=== PATIENT | female | born 1975 | race Caucasian/White ===

== ENCOUNTER 2018-08-24 09:00 | Outpatient (RCR) | payer OTHER, SELFPAY ==
--- NOTE | 2018-12-14 11:28 | HP.PT.NRP ---
HP - Discharge Summary (1) - Patient Information CHRISTOPHE PIKE was seen in my office for initial evaluation on . The following Plan of Care was established for this patient: This patient was last seen in our office 08/24/18. Pertinent comments regarding their Physical therapy will appear below: Pt. came for her initial evaluation with diagnosis of breast cancer. Pt. is eager to do exercises on her own. After talking with her she decided to do her exercises on her own and come back to PT if needed. Pt. has not been seen since and will be DC from PT at this point in time. At this point I will be discontinuing this patient from physical therapy. I would be happy to see this patient again in the future if found appropriate by the physician. Thank you! IRA TseT
== END 2018-08-24 19:00 | disposition home or self-care (01) ==
LOC: PT 09:00
PROVIDERS: Family Provider Family Medicine; PCP Family Medicine
DX: C50.812 Malignant neoplasm of overlapping sites of left female breast (principal); Z17.0 Estrogen receptor positive status [ER+]; E66.9 Obesity, unspecified

== ENCOUNTER → 2018-09-15 12:40 | Outpatient (CLI) | payer OTHER, SELFPAY | PROVIDERS: Family Provider Family Medicine; PCP Family Medicine; Referring Provider Family Medicine; Visit Provider Family Medicine | DX: Z45.2 Encounter for adjustment and management of vascular access device (principal); Z85.3 Personal history of malignant neoplasm of breast | CPT/HCPCS: 96523; A4216 ==

== ENCOUNTER → 2019-08-14 09:34 | Outpatient (CLI) | payer OTHER, SELFPAY ==
[2019-02-20 08:32] VITALS: BMI 27.9
--- NOTE | 2019-08-14 09:37 | ECHOD_ITS ---
Reason For Study: CHF Procedure This was a 2D Doppler, Color Flow transthoracic echocardiogram. Myocardial strain analysis was performed in this exam to aid in the assessment of cardiac function. Exam performed in department. Left Ventricle Normal LV size. Left ventricular systolic function is lower limits of normal. The estimated ejection fraction is 50 %. The global longitudinal strain = -12% (abnormal). No evidence for diastolic dysfunction. No regional wall motion abnormalities noted. Right Ventricle Normal RV size. Normal systolic function. Atria Normal left atrium. Normal right atrium. No doppler evidence for ASD. Mitral Valve There is no mitral annular calcification. Normal mitral valve. Trivial mitral valve insufficiency. Tricuspid Valve Normal tricuspid valve. Trivial tricuspid valve insufficiency. Aortic Valve Trisinus/trileaflet aortic valve. Normal aortic valve. Pulmonic Valve The pulmonic valve is not well visualized. Great Vessels The aortic root is not well visualized. Pericardium/Pleural No pericardial effusion. MMode/2D Measurements & Calculations LVIDd: 5.2 cm IVSd: 0.99 cm LA dimension: 3.2 cm LVIDs: 3.6 cm LVPWd: 0.82 cm RVDd: 2.7 cm FS: 29.8 % LAV(MOD-bp): 25.6 ml LVAd ap4: 29.4 cm2 SV(MOD-sp4): 41.9 ml LAV(MOD-bp) Indexed: 15.8 ml/m2 EDV(MOD-sp4): 96.3 ml LAV(MOD-sp2): 28.6 ml EDV(sp4-el): 97.5 ml LAV(MOD-sp4): 22.1 ml LVAs ap4: 20.3 cm2 ESV(MOD-sp4): 54.4 ml ESV(sp4-el): 53.7 ml EF(MOD-sp4): 43.5 % EF(sp4-el): 44.9 % SV(sp4-el): 43.7 ml LA A4 area: 11.5 cm2 RA A4 area: 10.2 cm2 Time Measurements MV dec time: 0.15 sec Doppler Measurements & Calculations MV E max clemente: 104.6 cm/sec Lat Peak E' Clemente: 10.0 cm/sec Med Peak E' Clemente: 8.7 cm/sec MV A max clemente: 78.7 cm/sec E/E' lat: 10.5 E/E' med: 12.0 MV E/A: 1.3 MV V2 max: 119.3 cm/sec MV P1/2t max clemente: 119.3 cm/sec Ao V2 max: 131.8 cm/sec MV max P.7 mmHg MV P1/2t: 55.3 msec Ao max P.0 mmHg MV V2 mean: 69.5 cm/sec MV mean P.3 mmHg MV dec slope: 632.1 cm/sec2 MV V2 VTI: 24.6 cm MVA(P1/2t): 4.0 cm2 LV V1 max: 99.2 cm/sec PA V2 max: 86.7 cm/sec LV V1 max P.9 mmHg Interpretation Summary Left ventricular systolic function is lower limits of normal. The estimated ejection fraction is 50 %. The global longitudinal strain = -12% (abnormal). Trivial mitral valve insufficiency. Trivial tricuspid valve insufficiency. No evidence for diastolic dysfunction. Ordering Physician: Choco Peacock Referring Physician: Calos Quevedo Performed By: Patrice Romero RCS
== END ==
PROVIDERS: Family Provider Family Medicine; PCP Family Medicine; Referring Provider Nurse Practitioner Family; Visit Provider Nurse Practitioner Family
DX: I50.9 Heart failure, unspecified (principal); I43 Cardiomyopathy in diseases classified elsewhere
CPT/HCPCS: 93306

== ENCOUNTER → 2020-07-29 14:45 | Outpatient (CLI) | payer OTHER, SELFPAY ==
[2020-03-25 08:24] VITALS: BMI 26.2
[2020-07-29 16:57] LABS: Absolute Lymphocyte Count 2.94 X10^3/uL (0.83-4.51); Absolute Neutrophil Count 4.7 X10^3/uL (2.0-7.7); Basophil# 0.06 X10^3/uL; Basophil% 0.7 % (0-1); Eosinophil# 0.18 X10^3/uL; Eosinophils% 2.1 % (0-5); Hematocrit 43.8 % (37-47); Hemoglobin 14.2 g/dL (12.0-15.0); Lymphocyte # 2.94 X10^3/ul (4.0); Lymphocyte % 34.8 % (19-41); Mean Corp Hgb Conc 32.4 g/dL (32-36); Mean Corpuscular Hgb 32.6 pg (27.0-32.0); Mean Corpuscular Volume 100.5 fL (81-99); Mean Platelet Vol. 9.4 fl (6.2-12.0); Monocyte% 5.9 % (0-10); NRBC Flagged by Analyzer 0 % (0-5); Neutrophil # 4.73 X10^3/uL (2.7-7.7); Neutrophil % 56.1 % (47-70); Platelet Count 353 K/mm3 (150-450); RBC Distribution Width CV 13.2 % (11.6-14.6); RBC Distribution Width SD 49.2 fl (35.1-43.9); Red Blood Count 4.36 M/mm3 (4.2-5.4); White Blood Count 8.4 K/mm3 (4.4-11.0)
[2020-07-29 17:13] LABS: ALB/GLOB Ratio 1.2 RATIO (0.9-2.4); AST(SGOT) 29 U/L (15-37); Alanine Aminotransfer ALT/SGPT 34 U/L (13-56); Albumin, Serum 4.1 g/dL (3.2-5.0); Alkaline Phosphatase 66 U/L (45-117); Anion Gap 5 (5-15); BUN 10 mg/dL (7-18); BUN/Creat Ratio 13.8 RATIO (10-20); Calcium,Total 8.7 mg/dL (8.5-10.1); Chloride 107 mmol/L (98-107); Creatinine, Serum 0.72 mg/dL (0.55-1.02); EST Glomerular Filtration Rate 92 mL/min (>60); Est Glom Filt Rate - Afr Amer 111 mL/min (>60); Globulin 3.3 g/dL (2.2-4.2); Glucose 77 mg/dL (74-106); Potassium 4.1 mmol/L (3.5-5.1); Protein, Total 7.4 g/dL (6.4-8.2); Sodium Level 140 mmol/L (136-145)
== END ==
PROVIDERS: PCP Family Medicine; Visit Provider Family Medicine
DX: R10.11 Right upper quadrant pain (principal)
CPT/HCPCS: 36415; 80053; 85025

== ENCOUNTER → 2020-08-02 08:43 | Outpatient (CLI) | payer OTHER, SELFPAY ==
[2020-03-25 08:24] VITALS: BMI 26.2
--- NOTE | 2020-08-02 08:48 | US_ITS ---
STUDY: ABDOMINAL ULTRASOUND - RIGHT UPPER QUADRANT REASON FOR VISIT: Female, 44 years old RUQ PAIN TECHNIQUE: Ultrasound evaluation of the right upper quadrant was performed with real-time and static nguyen-scale imaging. TECHNICAL QUALITY: Adequate. COMPARISON: 09/09/2015 FINDINGS: Liver: The liver measures 11.9 cm. There is normal echogenicity of the liver. The bile ducts are within normal limits. There is hepatic color flow. The direction of portal flow is hepatopetal. There is no demonstrated mass lesion. Gallbladder: Normal distended gallbladder. The gallbladder wall measures 2 mm. There is a negative sonographic Carrington''s sign. There is no pericholecystic fluid. There are no gallstones. Common Bile Duct (C.B.D.): The common bile duct measures 2 mm. Pancreas: Normal size of the head, body and tail of the pancreas. There is normal echogenicity of the pancreas. There is no demonstrated pancreatic mass or cyst. Right Kidney: Normal size of the right kidney. The right kidney measures 9.5 cm. Normal renal cortex. The right cortex measures 1.4 cm. There is no demonstrated renal mass or cyst. There is no right hydronephrosis. US/Abdomen Limited IMPRESSION: Normal right upper quadrant ultrasound examination. Electronically Signed: Yogesh Gonzalez MD at 12:55 EDT Tel , Service support ,
== END ==
PROVIDERS: PCP Family Medicine; Referring Provider Family Medicine; Visit Provider Family Medicine
DX: R10.11 Right upper quadrant pain (principal)
CPT/HCPCS: 76705

== ENCOUNTER 2021-11-05 13:17 | Outpatient (CLI) | payer OTHER, SELFPAY ==
--- NOTE | 2021-11-05 13:20 | RAD_ITS ---
STUDY: X-RAY - LUMBAR SPINE REASON FOR EXAM: Female, 45 years old. Back pain, history of breast CVA TECHNIQUE: 4 view(s) of the lumbar spine were obtained. COMPARISON: None FINDINGS: Normal lumbar lordosis. There is a rotatory scoliosis. There is a normal alignment of the vertebrae. Normal vertebral bodies and endplates. Normal disc space heights. The soft tissue structures are unremarkable. RAD/L/S Spine Min 4 Views IMPRESSION: Rotatory scoliosis, no demonstrated fracture or suspicious osseous lesion Electronically Signed: Yury Ramirez MD at 14:21 EST ,
== END 2021-11-05 23:59 | disposition short-term general hospital (02) ==
LOC: MTRAD 13:18
PROVIDERS: PCP Family Medicine; Referring Provider Family Medicine; Visit Provider Family Medicine
DX: M54.17 Radiculopathy, lumbosacral region (principal); Z85.3 Personal history of malignant neoplasm of breast
CPT/HCPCS: 72110

== ENCOUNTER 2021-12-30 09:00 | Outpatient (RCR) | payer OTHER, SELFPAY ==
--- NOTE | 2021-12-07 12:23 | HP.PTEVAL_ITS ---
Patient's Visit Information CHRISTOPHE PIKE is a 46 year old F referred to Physical Therapy by Dr. Calos Quevedo DO with a diagnosis of LUMBAR RADICULOPATHY.. Date of Evaluation: 12/07/21 Physical Therapist: Radha Dyer PT, Cert MDT - Visit Plan Frequency: 2-3x /Week Duration: 2-4 Weeks Plan: EVAL ONLY. CHECK AUTH AND RECORD VISITS AND EXPIRATION DATE APPROPRIATE. MODALITIES NEEDED/APPROVED. POSTURE CORRECTION/STRENGTHENING, INSTRUCTION IN APPROPRIATE BODY MECHANICS AND ACTIVITY MODIFICATIONS. DLS STARTING WITH A NEUTRAL SPINE PROGRESSING ROM TOLERATED. RENETTA LE ROM, STRETCHING AND STRENGTHENING. HEP INSTRUCTION. 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 Disability: NO. Present symptoms: LEFT LOW BACK, BUTTOCK, THIGH AND KNEE PAIN. NO PAIN BELOW THE KNEE. NO NUMBNESS OR TINGLING. ALSO GETS PAIN IN RIGHT LOW BACK/BUTTOCKS BUT IT DOES NOT GO DOWN THE RIGHT LEG. Present since: ABOUT 4 WKS AGO. Pain Scale: WORST 5/10, LEAST 0/10. Currently: 0/10. Commenced as a result of: 3 DAYS OF SPRING CLEANING FROM CEILING TO FLOOR 8 HOURS A DAY. Symptoms at onset: LEFT BUTTOCK PAIN. Worse: NO APPARENT REASON. Better: LYING DOWN AND ICE. Disturbed sleep: YES. Previous history/Previous treatment: NO PRIOR HX OF BACK PROBLEMS. Treatment this episode: 7 VISITS WITH [facility] WITH SOME BENEFIT. SELF REFERRED TO [facility]. NO PRIOR HX WITH [facility]. MUSCLE RELAXERS, STEROIDS AND PAIN MEDICINE - PATIENT REPORTS THE MEDICINE DIDN'T HELP BUT SHE JUST KEPT TAKING IT BECAUSE SHE DIDN'T KNOW WHAT ELSE TO DO. SHE REPORTS THE PAIN WAS SO BAD THAT SHE WANTED TO CUT HER LEG OFF BUT SHE IS SO MUCH BETTER NOW. SHE RELATES HER IMPROVEMENT TO THE STRETCHES SHE TRIED THAT SHE FOUND ON LINE. ALSO WENT TO [facility] FOR TESTING INCLUDING SPINE CAT SCAN AND OTHER CANCER SCREENINGS SINCE ONSET OF THIS PAIN. SHE REPORTS THAT THEY FOUND A WEDGE AT T12, ARTHRITIS AND SCOLIOSIS. NO FOLLOW UP TESTING RECOMMENDED AT THIS TIME BUT PLANS TO FOLLOW UP WITH [facility] END OF DECEMBER 2021. Coughing/sneezing/straining: NEGATIVE. Gait: GAIT IS NORMAL NOW. Difficulty initiating urination: NO. DENIES BOWEL AND BLADDER DYSFUNCTION. Accidents: NO. Unexplained weight loss: NO. Imaging: STUDY: X-RAY - LUMBAR SPINE. REASON FOR EXAM: Female, 45 years old. Back pain, history of breast CVA. TECHNIQUE: 4 view(s) of the lumbar spine were obtained. COMPARISON: None. . FINDINGS: Normal lumbar lordosis. There is a rotatory scoliosis. There is a normal. alignment of the vertebrae. Normal vertebral bodies and endplates. Normal disc space heights. The soft tissue structures are unremarkable. . RAD/L/S Spine Min 4 Views. IMPRESSION: Rotatory scoliosis, no demonstrated fracture or suspicious osseous lesion. . Electronically Signed: Yury Ramirez MD. at 14:21 EST. Reading Location ID and State: [facility] / [place]. PMH: HTN. 2018 [facility] AND CAN[facility]ER FREE NOW. TREATED WITH CHEMO, RADIATION, RENETTA MASTECTOMY AND HYSTERECTOMY. - Objective Sitting/Standing Posture: POOR. SCOLIOSIS. Active Correction of posture: NE. Other Observations: INDEP GAIT AND TRANSFERS. Motor deficit: RENETTA LE'S GROSSLY 5/5 WITH MMT'ING EXCEPT HIPS 4/5. Sensory deficit: RENETTA LE LIGHT TOUCH SENSATION GROSSLY INTACT AND SYMMETRICAL. ROM deficit: RENETTA LE'S WFL. Reflexes: UNABLE TO ELICIT RENETTA LE DTR'S. Dural Signs: NEGATIVE RENETTA LE'S. Lumbar mvmt loss: flex - NIL. ext - MIN. R SG - MIIN. L SG - MIN. Core strength: POOR. Palpation: MILD TENDERNESS L ISCHEAL TUBEROSISTY. TREATMENT: NEUROMUSCULAR REEDUCATION - RETRAINING OF MVMT AND POSTURE FOR SITTING, LYING AND STANDING ACTIVITIES. - Balance/Special Test Scores Oswestry Low Back Score: 22 - Goals Goal 1:: DECREASE C/O LOW BACK AND L LE SX'S. Goal Time Frame: 4-6 Weeks Goal 2:: IMPROVE LIFTING, WALKING, STANDING, SLEEP, AND WORK/HOMEMAKING FUNCTION Goal Time Frame: 4-6 Weeks Goal 3:: INSTRUCT IN PROPHYLAXIS Goal Time Frame: 4-6 Weeks - Anticipated Interventions Patient/Client Instruction: Educate patient on: Condition, Plan of Care, Risk Factors For the Purpose of:: To improve self management Therapeutic Exercise to Include: Strength training TENS: Yes IF ES: Yes Cryotherapy (ice pack, ice massage): Yes Thermo therapy (hot pack): Yes Ultrasound (thermal/non thermal): Yes For the Purpose of:: To decrease pain, To improve nutrient delivery to tissue Thank you for the opportunity to evaluate your patient. For Medicare and Medicare HMO plans, please review the plan of care and approve it. It will need to be FAXED BACK to us at [phone] for Medicare purposes. For Medicare only, by signing this I certify the plan of care. Please let me know if there are questions or concerns regarding this plan of care. Physician Signature: Date:
--- NOTE | 2021-12-30 09:27 | HP.PTDCSUM ---
It has been my pleasure to treat CHRISTOPHE PIKE referred by Dr. Calos Quevedo DO, with the diagnosis of LUMBAR RADICULOPATHY. for a total of 6 visit(s). Discharge Date: 12/30/21 Please see the following information for a summary of their discharge status. Subjective: PATIENT REPROTS SHE IS DOING GOOD. STATES SHE PICKED UP STICKS ON TUESDAY, WAS CAREFUL NOT TO BEND OR TWIST TOO MUCH, AND DID OK. PATIENT REPORTS SHE LOVES THE EX'S AND SHE FEELS LIKE LONG SHE KEEPS DOING THEM SHE WILL BE OK. WOULD LIKE TO BE DISCHARGE TO HEP. PATIENT REPORTS SHE HAS NEVER HAS DONE THESE EX'S BEFORE AND SHE TRUELY BELIEVES THEY ARE WORKING. L LBP Pain Intensity (Out of 10): 0 L LE Pain Intensity (Out of 10): 0 R LB/BUTTOCK Pain Intensity (Out of 10): 4 % Improvement: 90 Objective/Function: WRITTEN HEP PROVIDED. PATIENT IS INDEP WITH HEP. ALL GOALS MET AND APPROPRIATE FOR DISCHARGE. AGREEABLE TO DISCHARGE. PATIENT TOLERATED ALL INTERVENTIONS WELL TODAY AND IS PLEASANT AND COOPERATIVE TO WORK WITH. Goal 1:: DECREASE C/O LOW BACK AND L LE SX'S. Goal Progress: Goal Met Goal 2:: IMPROVE LIFTING, WALKING, STANDING, SLEEP, AND WORK/HOMEMAKING FUNCTION Goal Progress: Goal Met Goal 3:: INSTRUCT IN PROPHYLAXIS Goal Progress: Goal Met Plan: D/C If there are questions or concerns regarding this patient's physical therapy, please feel free to call me at [phone]. Thank you for the referral of this patient. Sincerely, Radha Dyer, PT, Cert MDT Balance/Gait/Functional tests - Balance/Special Test Scores Oswestry Low Back Score: 0
== END 2021-12-30 10:43 | disposition home or self-care (01) ==
LOC: PT 09:00
PROVIDERS: PCP Family Medicine; Referring Provider Family Medicine; Visit Provider Family Medicine
DX: M54.16 Radiculopathy, lumbar region (principal)
CPT/HCPCS: 97110; 97112; 97162; 97530

== ENCOUNTER → 2024-01-27 | Outpatient (CLI) | payer OTHER, SELFPAY ==
[2024-01-27 15:28] LABS: Absolute Lymphocyte Count 1.27 X10^3/uL (0.83-4.51); Absolute Neutrophil Count 6.5 X10^3/uL (2.0-7.7); Basophil# 0.04 X10^3/uL; Basophil% 0.5 % (0-1); Eosinophil# 0.08 X10^3/uL; Hematocrit 43.6 % (37-47); Hemoglobin 13.7 g/dL (12.0-15.0); Lymphocyte # 1.27 X10^3/ul (0.83-4.51); Lymphocyte % 15.2 % (19-41); Mean Corp Hgb Conc 31.4 g/dL (32-36); Mean Corpuscular Hgb 30.4 pg (27.0-32.0); Mean Corpuscular Volume 96.7 fL (81-99); Mean Platelet Vol. 9.6 fl (6.2-12.0); Monocyte# 0.39 X10^3/uL; Monocyte% 4.7 % (0-10); NRBC Flagged by Analyzer 0 % (0-5); Neutrophil # 6.54 X10^3/uL (2.7-7.7); Neutrophil % 78.2 % (47-70); Platelet Count 266 K/mm3 (150-450); RBC Distribution Width CV 13.7 % (11.6-14.6); RBC Distribution Width SD 49.3 fl (35.1-43.9); Red Blood Count 4.51 M/mm3 (4.2-5.4); White Blood Count 8.4 K/mm3 (4.4-11.0)
[2024-01-27 15:56] LABS: Vitamin D,25 Hydroxy 50.4 ng/mL
[2024-01-29 08:08] LABS: Immunoglobulin M 53 mg/dL (26-217)
[2024-02-04 15:08] LABS: Immunoglobulin A 94 mg/dL (87-352); Immunoglobulin E 83 IU/mL (6-495); Immunoglobulin G 819 mg/dL (586-1602)
== END | disposition home or self-care (01) ==
LOC: BFHLAB 13:25
PROVIDERS: PCP Family Medicine; Visit Provider Family Medicine
DX: R68.89 Other general symptoms and signs (principal); E55.9 Vitamin D deficiency, unspecified; J06.9 Acute upper respiratory infection, unspecified
CPT/HCPCS: 36415; 82306; 82784; 82785; 85025

== ENCOUNTER → 2024-01-27 | Outpatient (CLI) | payer OTHER, SELFPAY | END | disposition home or self-care (01) | LOC: LAB.FUTURE 13:05 | PROVIDERS: PCP Family Medicine; Visit Provider Family Medicine | DX: R68.89 Other general symptoms and signs (principal); E55.9 Vitamin D deficiency, unspecified; J06.9 Acute upper respiratory infection, unspecified ==

== ENCOUNTER → 2024-03-12 | Outpatient (CLI) | payer OTHER, SELFPAY | END | disposition home or self-care (01) | LOC: LABSPEC 15:25 | PROVIDERS: PCP Family Medicine; Referring Provider Otolaryngology Otolaryngology/Facial Plastic Surgery; Visit Provider Otolaryngology Otolaryngology/Facial Plastic Surgery | DX: J32.9 Chronic sinusitis, unspecified (principal) | CPT/HCPCS: 87070; 87077; 87205 ==

== ENCOUNTER → 2024-06-14 | Outpatient (CLI) | payer OTHER, SELFPAY ==
--- NOTE | 2024-06-14 12:24 | RAD_ITS ---
STUDY: X-RAY - LUMBAR SPINE REASON FOR EXAM: Female, 48 years old. Pain. TECHNIQUE: 4 view(s) of the lumbar spine were obtained. COMPARISON: November 05 FINDINGS: Osteopenia. Normal lordosis. Stable mild thoracolumbar scoliosis. Normal vertebral alignment. Diffuse mild lower thoracic and lumbosacral facet sclerosis. Mild intervertebral disc space narrowing most marked at T10-11, T12-L1, L1-L2 and L5-S1. Postsurgical changes in the lower abdomen and pelvis. RAD/L/S Spine Min 4 Views IMPRESSION: Stable osteopenia with mild scoliosis and lower thoracic and lumbosacral spondylosis. Electronically Signed: Stanley Murray MD at 13:38 EDT ,
--- NOTE | 2024-06-14 12:24 | RAD_ITS ---
STUDY: X-RAY - PELVIS AND RIGHT HIP REASON FOR EXAM: Female, 48 years old. Pain. TECHNIQUE: 3 views of the pelvis and hip. COMPARISON: None. FINDINGS: There is a normal bowel gas pattern with air seen to the rectum. Clips in the lower abdomen and pelvis Normal bilateral iliac wings, sacroiliac joints and visualized sacrum. Normal bilateral superior and inferior pubic rami. Normal pubic symphysis. Normal bilateral ischial tuberosities. Normal visualized femoral head. Normal acetabulum. Normal hip joint. RAD/HIP, UNI W/ Pelvis 2-3 Views IMPRESSION: No significant abnormality identified. Electronically Signed: Stanley Murray MD at 13:41 EDT ,
== END | disposition home or self-care (01) ==
PROVIDERS: PCP Family Medicine; Referring Provider Physician Assistant; Visit Provider Physician Assistant
DX: C50.812 Malignant neoplasm of overlapping sites of left female breast (principal); Z17.0 Estrogen receptor positive status [ER+]; M81.0 Age-related osteoporosis without current pathological fracture; Z15.01 Genetic susceptibility to malignant neoplasm of breast; Z15.09 Genetic susceptibility to other malignant neoplasm; Z79.811 Long term (current) use of aromatase inhibitors; M54.50 Low back pain, unspecified
CPT/HCPCS: 72110; 73502

== ENCOUNTER 2024-09-24 09:00 | Outpatient (RCR) | payer OTHER, SELFPAY ==
--- NOTE | 2024-07-04 07:56 | HP.PTEVAL_ITS ---
Patient's Visit Information Visit Information Visit Information: CHRISTOPHE PIKE is a 48 year old F referred to Physical Therapy by KRYS CUNNINGHAM with a diagnosis of R hip OA/R lumbar radic. Date of Evaluation: 07/04/24 Physical Therapist: ESTRADA Mariano Visit Plan Frequency: 2x /Week Duration: 2 Months Plan: 2X/ week for 4 weeks for centralization of sx using extension principle, core and postural exercises, R hip strength (leena hip ext) with HEP HEP: prone press ups 2 X 10 and then 1X 10 with pt sag and sit with L roll and change bucket seats in car with cushion etc. Subjective Subjective: She went to the Dr and got an x-ray and MRI or R hip and back. She has a muscle detachment When she runs she feels that her R leg bone will fall out of socket. She can walk but she can not run and has to run a lot catching her grandkids. The pain goes all the way down to the foot on the R side. On the MRI she has spinal cord narrowing and that is what was causing the R leg pain. She has to put something under her R hip to drive. She is not sleeping well because she has pain. She sees the spine Dr on August 16. The hip Dr says no surgery but not sure about the back Dr. She was a previous [place] pt with osteoporosis but they said it was not bone. She has Gabapetin for the nerve pain and meloxicam for the pain. She takes the Gabapetin 3X/ day and has not noticed a difference. Laying on her hip hurts. She has to get up slower from low chairs and moves slower. Pain R hip pain: Pain Intensity (Out of 10): 4 Back pain: Pain Intensity (Out of 10): 6 R ankle pain: Pain Intensity (Out of 10): 0 Pain Intensity Range: 8 Comment: After an hour of driving Objective Objective: Gait: Walks with decrease stance time on the R Posture: Sits with decreased PPT. Does sit well with L roll with more upright posture. Patella DTR's 0/3 LE MMT: R hip flex 4-/5 and L 4/5 R knee ext B 4/5 R knee flex B 4/5 R hip abd 4-/5 and L 4/5 R hip ext B 4-/5 Pt is able to walk on heels and toes Pt has decreased ER of the R hip compared to the L with increase pain at end range. She has excellent Hamstring muscle length with some slight pain at end range stretching on the R. She has good hip flexor muscle length Trunk AROM: flex 75%, Ext 50% (increase pain) Prone lying had some central back pain, 2 X 10 press ups (less central back pain) and then 1 X 10 with pt sag and had improved extension ROM with some back pain. Instructed pt in good posture sitting in the car with a L roll Balance/Special Test Scores Oswestry Low Back Score: 20 Goals Goal 1:: I HEP Goal Time Frame: 6-8 Weeks Goal 2:: Be able to get up from sitting on pedicure chair at work without having to go slow and have pain Goal Time Frame: 6-8 Weeks Goal 3:: Decrease R hip and back pain freq by 50% Goal Time Frame: 6-8 Weeks Rehabilitation Potential Rehabilitation Potential: Good Anticipated Interventions Patient/Client Instruction: Educate patient on: Condition and Plan of Care For the Purpose of:: To decrease pain, To increase ROM, To improve nutrient delivery to tissue, To improve muscle performance and motor function, To improve ability to perform ADL's, To increase tolerance to activity/condition/position, To improve performance and independence with ADL's, To decrease level of supervision to perform tasks, To improve ability of physical actions for home/community/work/leisure, To improve gait and locomotor functions, To improve health of tissue, To decrease soft tissue restriction and To increase fl exibility/ROM Therapeutic Exercise to Include: Strength training, Body mechanics, Postural training, Flexibilty training, Neuromotor development, Active ROM, Dynamic Lumbar Stabilization, Angie Exercises and Scapular Strength/Stabilization For the Purpose of:: To decrease pain, To increase ROM, To improve nutrient delivery to tissue, To improve muscle performance and motor function, To improve ability to perform ADL's, To increase tolerance to activity/condition/position, To improve performance and independence with ADL's, To decrease level of supervision to perform tasks, To improve ability of physical actions for home/community/work/leisure, To improve gait and locomotor functions, To improve health of tissue, To decrease soft tissue restriction and To increase flexibility/ROM Manual Therapy Techniques to Include: Mobilization, Passive ROM and Soft tissue mobilization For the Purpose of:: To decrease pain, To increase ROM, To improve nutrient delivery to tissue, To improve muscle performance and motor function, To improve ability to perform ADL's, To increase tolerance to activity/condition/position, To improve performance and independence with ADL's, To improve ability of physical actions for home/community/work/leisure, To improve gait and locomotor functions and To improve health of tissue Cryotherapy (ice pack, ice massage): Yes Thermo therapy (hot pack): Yes For the Purpose of:: To increase ROM and To improve nutrient delivery to tissue Text: Thank you for the opportunity to evaluate your patient. For Medicare and Medicare HMO plans, please review the plan of care and approve it. It will need to be FAXED BACK to us at [phone] for Medicare purposes. For Medicare only, by signing this I certify the plan of care. Please let me know if there are questions or concerns regarding this plan of care. Physician Signature: Date:
--- NOTE | 2024-11-12 07:24 | HP.PT.NRP ---
Patient Information Patient Information: CHRISTOPHE PIKE was seen in my office for initial evaluation on 07/04/24. The following Plan of Care was established for this patient: POC Established Initial Frequency: 2x /Week Initial Duration: 2 Months Anticipated Interventions Patient/Client Instruction: Educate patient on: Condition and Plan of Care For the Purpose of:: To decrease pain, To increase ROM, To improve nutrient delivery to tissue, To improve muscle performance and motor function, To improve ability to perform ADL's, To increase tolerance to activity/condition/position, To improve performance and independence with ADL's, To decrease level of supervision to perform tasks, To improve ability of physical actions for home/community/work/leisure, To improve gait and locomotor functions, To improve health of tissue, To decrease soft tissue restriction and To increase flexibility/ROM Therapeutic Exercise to Include: Strength training, Body mechanics, Postural training, Flexibilty training, Neuromotor development, Active ROM, Dynamic Lumbar Stabilization, Angie Exercises and Scapular Strength/Stabilization For the Purpose of:: To decrease pain, To increase ROM, To improve nutrient delivery to tissue, To improve muscle performance and motor function, To improve ability to perform ADL's, To increase tolerance to activity/condition/position, To improve performance and independence with ADL's, To decrease level of supervision to perform tasks, To improve ability of physical actions for home/community/work/leisure, To improve gait and locomotor functions, To improve health of tissue, To decrease soft tissue restriction and To increase flexibility/ROM Manual Therapy Techniques to Include: Mobilization, Passive ROM and Soft tissue mobilization For the Purpose of:: To decrease pain, To increase ROM, To improve nutrient delivery to tissue, To improve muscle performance and motor function, To improve ability to perform ADL's, To increase tolerance to activity/condition/position, To improve performance and independence with ADL's, To improve ability of physical actions for home/community/work/leisure, To improve gait and locomotor functions and To improve health of tissue Cryotherapy (ice pack, ice massage): Yes Thermo therapy (hot pack): Yes For the Purpose of:: To increase ROM and To improve nutrient delivery to tissue Last Seen Last Seen: This patient was last seen in our office 09/24/25. Pertinent comments regarding their Physical therapy will appear below: BAR PT At this point I will be discontinuing this patient from physical therapy. I would be happy to see this patient again in the future if found appropriate by the physician. Thank you! Lisset Hua, ESTRADA Balance/Gait/Functional tests Balance/Special Test Scores Oswestry Low Back Score: 20
== END 2024-09-24 19:00 | disposition home or self-care (01) ==
LOC: PT 09:00
PROVIDERS: PCP Family Medicine
DX: M25.551 Pain in right hip (principal); M16.11 Unilateral primary osteoarthritis, right hip; M54.16 Radiculopathy, lumbar region
CPT/HCPCS: 97110; 97161